=== PATIENT | male | born 1980 | race African-American/Black ===

== ENCOUNTER 2017-09-15 19:39 | Emergency (ER) | payer SELFPAY ==
[2017-09-15] MEDS: IV NORMAL SALINE 1000ML BAG 1,000 ML IV (20:15)
[2017-09-15 20:20] LABS: ADD MAN DIFF? NO
[2017-09-15 20:23] LABS: POC GLUCOSE 116 mg/dL (70-99)
[2017-09-15 20:26] LABS: BASO % 1 % (0-3); BILIRUBIN,URINE NEGATIVE (NEG); CLARITY,URINE CLEAR; COLOR,URINE YELLOW; EOS # 0.3 x10^3/uL (0.0-0.7); EOS % 4 % (0-3); GLUCOSE,URINE 100 mg/dL (NEG); HEMATOCRIT 43.6 % (39.0-53.0); HEMOGLOBIN 14.6 g/dL (13.0-17.5); LYMPH # 2.1 x10^3/uL (1.0-4.8); LYMPH % 28 % (24-48); MEAN CORPUSCULAR HEMOGLOBIN 31 pg (25-35); MEAN CORPUSCULAR HGB CONC 34 g/dL (31-37); MEAN CORPUSCULAR VOLUME 91 fL (79-100); MONO # 0.8 x10^3/uL (0.0-1.1); MONO % 11 % (0-9); NEUT # 4.4 x10^3uL (1.8-7.7); NEUT % 58 % (31-73); NITRITE,URINE NEGATIVE (NEG); PLATELET COUNT 223 x10^3/uL (140-400); PROTEIN,URINE 100 mg/dL (NEG-TRACE); RED CELL DISTRIBUTION WIDTH 13.3 % (11.5-14.5); WHITE BLOOD COUNT 7.7 x10^3/uL (4.0-11.0)
[2017-09-15 20:33] LABS: ANION GAP 10 (6-14); BLOOD UREA NITROGEN 13 mg/dL (8-26); BUN/CREATININE RATIO 8 (6-20); CALCIUM 8.5 mg/dL (8.5-10.1); CARBON DIOXIDE 27 mmol/L (21-32); CHLORIDE 106 mmol/L (98-107); CREATININE 1.7 mg/dL (0.7-1.3); GFR 54.9; GLUCOSE 125 mg/dL (70-99); POTASSIUM 3.4 mmol/L (3.5-5.1); SODIUM 143 mmol/L (136-145)
[2017-09-15 20:34] LABS: BARBITURATES NEG (NEG); BENZODIAZEPINES NEG (NEG); CANNABINOIDS POS (NEG); COCAINE NEG (NEG); METHADONE NEG (NEG); OPIATES NEG (NEG); PHENCYCLIDINE POS (NEG)
[2017-09-15 20:35] LABS: AMPHETAMINE/METHAMPHETAMINE NEG (NEG); ETHANOL, URINE NEG (NEG)
[2017-09-15 20:36] LABS: BACTERIA,URINE 0 /HPF (0-FEW)
[2017-09-15 20:37] LABS: ACETAMIN < 2 mcg/ml (10-30); ETHANOL < 10 mg/dL (0-10); SALIC < 2.8 mg/dL (2.8-20.0); SQUAMOUS EPITHELIAL CELL,UR OCC /LPF
[2017-09-15 20:40] LABS: ALBUMIN 3.7 g/dL (3.4-5.0); ALBUMIN/GLOBULIN RATIO 1.1 (1.0-1.7); ALK PHOS 91 U/L (46-116); ALT (SGPT) 34 U/L (16-63); AST (SGOT) 25 U/L (15-37); TOTAL BILIRUBIN 0.3 mg/dL (0.2-1.0); TOTAL PROTEIN 7.2 g/dL (6.4-8.2)
[2017-09-15] MEDS: POTASSIUM CHLORIDE 20 MEQ TABLET.ER. PO (21:36)
[2017-09-15] MEDS: ONDANSETRON PF 4 MG/2 ML VIAL. IV (21:36)
== END 2017-09-15 22:35 | disposition home or self-care (01) ==
LOC: ER 19:39
DX: F12.10 Cannabis abuse, uncomplicated (principal); F16.10 Hallucinogen abuse, uncomplicated; R41.82 Altered mental status, unspecified; I10 Essential (primary) hypertension
CPT/HCPCS: 36415; 51701; 70450; 80053; 80307; 80329; 81001; 82962; 85025; 87086; 93005; 96361; 96374; 99285-25; G0480; J2405; J7030

== ENCOUNTER 2017-11-27 03:24 | Emergency (ER) | payer SELFPAY ==
[2017-11-27 04:34] LABS: ADD MAN DIFF? NO
[2017-11-27 04:36] LABS: BASO # 0.1 x10^3/uL (0.0-0.2); BASO % 1 % (0-3); EOS # 0.3 x10^3/uL (0.0-0.7); EOS % 4 % (0-3); HEMATOCRIT 41.4 % (39.0-53.0); HEMOGLOBIN 14.1 g/dL (13.0-17.5); LYMPH # 2.8 x10^3/uL (1.0-4.8); LYMPH % 38 % (24-48); MEAN CORPUSCULAR HEMOGLOBIN 31 pg (25-35); MEAN CORPUSCULAR HGB CONC 34 g/dL (31-37); MEAN CORPUSCULAR VOLUME 90 fL (79-100); MONO # 0.7 x10^3/uL (0.0-1.1); MONO % 10 % (0-9); NEUT # 3.5 x10^3uL (1.8-7.7); NEUT % 48 % (31-73); PLATELET COUNT 209 x10^3/uL (140-400); RED CELL DISTRIBUTION WIDTH 13.2 % (11.5-14.5); WHITE BLOOD COUNT 7.3 x10^3/uL (4.0-11.0)
[2017-11-27 04:46] LABS: ANION GAP 9 (6-14); BLOOD UREA NITROGEN 22 mg/dL (8-26); BUN/CREATININE RATIO 14 (6-20); CALCIUM 8.9 mg/dL (8.5-10.1); CARBON DIOXIDE 29 mmol/L (21-32); CHLORIDE 104 mmol/L (98-107); CREATININE 1.6 mg/dL (0.7-1.3); GFR 58.5; GLUCOSE 115 mg/dL (70-99); POTASSIUM 3.3 mmol/L (3.5-5.1); SODIUM 142 mmol/L (136-145)
[2017-11-27 04:47] LABS: ETHANOL < 10 mg/dL (0-10)
[2017-11-27 04:52] LABS: ALBUMIN 3.7 g/dL (3.4-5.0); ALK PHOS 97 U/L (46-116); ALT (SGPT) 26 U/L (16-63); AST (SGOT) 16 U/L (15-37); TOTAL BILIRUBIN 0.6 mg/dL (0.2-1.0); TOTAL PROTEIN 7.4 g/dL (6.4-8.2)
[2017-11-27 04:57] LABS: NT-PRO BNP 66 pg/mL (0-124)
[2017-11-27 05:00] LABS: TROPONINI < 0.017 ng/mL (0.000-0.055)
[2017-11-27] MEDS: IV NORMAL SALINE 1000ML BAG 1,000 ML IV (06:15)
[2017-11-27 06:55] LABS: BARBITURATES NEG (NEG); BENZODIAZEPINES NEG (NEG); CANNABINOIDS POS (NEG); COCAINE NEG (NEG); METHADONE NEG (NEG); OPIATES NEG (NEG); PHENCYCLIDINE POS (NEG)
[2017-11-27 06:57] LABS: AMPHETAMINE/METHAMPHETAMINE NEG (NEG); ETHANOL, URINE NEG (NEG)
== END 2017-11-27 08:09 | disposition home or self-care (01) ==
LOC: ER 03:24
DX: R06.00 Dyspnea, unspecified (principal); R41.82 Altered mental status, unspecified; F16.10 Hallucinogen abuse, uncomplicated; F12.10 Cannabis abuse, uncomplicated; I10 Essential (primary) hypertension; F17.210 Nicotine dependence, cigarettes, uncomplicated; E66.9 Obesity, unspecified; Z68.32 Body mass index [BMI] 32.0-32.9, adult
CPT/HCPCS: 36415; 70450; 71045; 80053; 80307; 83880; 84484; 85025; 93005; 96360; 99285-25; G0480; J7030

== ENCOUNTER 2022-01-06 04:54 | Emergency (ER) | payer SELFPAY ==
[~2022-01-06] VITALS: Ht 177.8 cm; Wt 102.3 kg
[~2022-01-06 04:54] MED LIST: SULF1TAB24 PO
[2022-01-06] MEDS ORDERED: cloNIDine HCL 0.1 MG TABLET PO ONE (05:15)
[2022-01-06] MEDS ORDERED: ACETAMINOPHEN 500 MG TABLET PO ONE (05:15)
--- NOTE | 2022-01-06 05:15 | PHYS DOC ---
Past Medical History Past Medical History: Hypertension, Unknown Additional Past Medical Histor: UNKNOWN Past Surgical History: No Surgical History, Other Additional Past Surgical Histo: UNKNOWN Smoking Status: Current Every Day Smoker Alcohol Use: Occasionally Drug Use: Marijuana, Phencyclidine General Adult HPI: HPI: Patient is a 41 year old M who presents with an initial complaint of hypertension, BP 170/120 in the field, after arriving patient is c/o L sided flank pains, mild, not associated with any fevers, chills, dysuria or hematuria. Patient appears intoxicated/high, slow to answer questions, somewhat disoriented, says he ran out of his BP meds several days ago but does not remember the name of his medication. Says they were prescribed to him at but he doesn't know who the doctor was. Review of Systems: Review of Systems: Constitutional: Denies fever or chills. [] Eyes: Denies change in visual acuity. [] HENT: Denies nasal congestion or sore throat. [] Respiratory: Denies cough or shortness of breath. [] Cardiovascular: Denies chest pain or edema. [] GI: Denies abdominal pain, nausea, vomiting, bloody stools or diarrhea. [] : Denies dysuria. [] Musculoskeletal: Denies back pain or joint pain. [] Integument: Denies rash. [] Neurologic: Denies headache, focal weakness or sensory changes. [] Endocrine: Denies polyuria or polydipsia. [] Lymphatic: Denies swollen glands. [] Psychiatric: Denies depression or anxiety. [] Heart Score: C/O Chest Pain: No Risk Factors: Risk Factors: DM, Current or recent (<one month) smoker, HTN, HLP, family his tory of CAD, obesity. Risk Scores: Score 0 - 3: 2.5% MACE over next 6 weeks - Discharge Home Score 4 - 6: 20.3% MACE over next 6 weeks - Admit for Clinical Observation Score 7 - 10: 72.7% MACE over next 6 weeks - Early Invasive Strategies Allergies: Allergies: Allergies Coded Allergies Type Severity Reaction Last Updated Verified No Known Drug Allergies 01/24/16 No Physical Exam: PE: Constitutional: Well developed, well nourished, no acute distress, non-toxic appearance. [] HENT: Normocephalic, atraumatic, bilateral external ears normal, oropharynx moist, no oral exudates, nose normal. [] Eyes: PERRLA, EOMI, conjunctiva normal, no discharge. [] Neck: Normal range of motion, no tenderness, supple, no stridor. [] Cardiovascular:Heart rate regular rhythm, no murmur [] Lungs & Thorax: Bilateral breath sounds clear to auscultation [] Abdomen: Bowel sounds normal, soft, no tenderness, no masses, no pulsatile masses. [] Skin: Warm, dry, no erythema, no rash. [] Back: No tenderness, no CVA tenderness. [] Extremities: No tenderness, no cyanosis, no clubbing, ROM intact, mild lower extremity edema. [] Neurologic: Alert and oriented X 3, normal motor function, normal sensory function, no focal deficits noted. [] Psychologic: blunted affect, mildly depressed mood, denies SI or HI EKG: EKG: EKG done at 0500, normal sinus rhythm at a rate of 64, normal axis, normal intervals, no ischemic changes Radiology/Procedures: Radiology/Procedures: [] Course & Med Decision Making: Course & Med Decision Making Patient is a poor historian and continually falls asleep during the history and physical exam. Patient symptoms seem to be changing every time someone speaks to him but at this time appears to be in no acute distress and the only thing that I find concerning on arrival is that his blood pressure is moderately elevated. Patient cannot provide me with the name of his blood pressure medication and so I cannot refill his meds but I will give him 1 dose of clonidine to lower his pressure today and Tylenol for mild left flank pains that are not reproducible on exam. Patient encouraged to follow-up with his doctors at to get refills of his medications including his blood pressure medic ation. EKG done on arrival does not show any signs of ischemia or arrhythmia. Cecille Disclaimer: Cecille Disclaimer: This electronic medical record was generated, in whole or in part, using a voice recognition dictation system. Departure Departure Impression: Primary Impression: Hypertension Qualified Codes: I10 - Essential (primary) hypertension Disposition: HOME / SELF CARE / HOMELESS Condition: STABLE Referrals: UNKNOWN PCP NAME (PCP) Patient Instructions: Hypertension DEBBIE LOVE MD January 06, 2022 05:15
[2022-01-06 05:27] VITALS: BP 180/120
== END 2022-01-06 05:43 | disposition home or self-care (01) ==
LOC: ER 04:54
DX: I10 Essential (primary) hypertension (principal); R10.9 Unspecified abdominal pain; R60.0 Localized edema; F17.200 Nicotine dependence, unspecified, uncomplicated
CPT/HCPCS: 99283